=== PATIENT | male | born 1980 | race Caucasian/White ===

== ENCOUNTER 2023-11-21 20:20 | Emergency (ER) | payer OTHER ==
[2023-11-21 20:38] VITALS: TEMP 98
--- NOTE | 2023-11-21 20:59 | ED ---
Eye Problem HPI - General Chief complaint: Eye Problems Stated complaint: eye discomfort Time Seen by Provider: 11/21/23 20:38 Source: patient, RN notes reviewed Mode of arrival: ambulatory Limitations: no limitations - History of Present Illness Initial comments: 42-year-old male presents emergency department accompanied by his for chief complaint of left eye pain. Patient states that he was outside doing yard work when he was using a brush hog and thought that he may have gotten a foreign body in his left eye. Patient states that his eye was bothering him today as well so he used a medical grade eyewash station while at work and flush out his eye 2 times with full intervals being 15 minutes. Patient states that over the span of the day the pain is gotten progressively worse and has severe photophobia. endorses mild pain with extraocular eye movement. History of Lasix. Denies contact lens use. - Related Data Allergies Allergy/AdvReac Type Severity Reaction Status Date / Time acetaminophen [From Percocet] AdvReac Hallucinati Verified 11/21/23 20:38 ons oxycodone [From Percocet] AdvReac Hallucinati Verified 11/21/23 20:38 ons Review of Systems ROS Statement: Those systems with pertinent positive or pertinent negative responses have been documented in the HPI. ROS Other: All systems not noted in ROS Statement are negative. Past Medical History Past Medical History: No Reported History Past Surgical History: Joint Replacement Additional Past Surgical History / Comment(s): skin graft Past Psychological History: PTSD Smoking Status: Never smoker Past Alcohol Use History: Occasional Past Drug Use History: None Reported General Exam Limitations: no limitations General appearance: alert, in no apparent distress Head exam: Present: atraumatic, normocephalic, normal inspection Expanded Eyelids: Normal Inspection: Bilateral Pupils: Regular, Round: Bilateral, Reactive: Bilateral Sclera/Conjunctival: Normal Inspection: Right, Injection: Left, Exudate: Left Visual acuity (R) = 20/: 20 Visual acuity (L) = 20/: 20 With correction: No IOP (R) in mmH IOP (L) in mmH IOP measured with: Tonopen ENT exam: Present: normal exam, mucous membranes moist Neck exam: Present: normal inspection. Absent: tenderness, meningismus, lymp hadenopathy Respiratory exam: Present: normal lung sounds bilaterally. Absent: respiratory distress, wheezes, rales, rhonchi, stridor Cardiovascular Exam: Present: regular rate, normal rhythm, normal heart sounds. Absent: systolic murmur, diastolic murmur, rubs, gallop, clicks GI/Abdominal exam: Present: soft, normal bowel sounds. Absent: distended, tenderness, guarding, rebound, rigid Course Vital Signs 11/21/23 11/21/23 20:31 22:35 Temperature 98.0 F Pulse Rate 88 84 Respiratory 22 20 Rate Blood Pressure 159/102 112/74 O2 Sat by Pulse 98 99 Oximetry Medical Decision Making - Medical Decision Making Was pt. sent in by a medical professional or institution (, PA, DIRECTOR MEDICAL SURGICAL, urgent care, hospital, or long term...) When possible be specific @ -No Did you speak to anyone other than the patient for history (EMS, parent, family, police, friend...)? What history was obtained from this source @ -No Did you review nursing and triage notes (agree or disagree)? Why? @ -I reviewed and agree with nursing and triage notes Were old charts reviewed (outside hosp., previous admission, EMS record, old EKG, old radiological studies, urgent care reports/EKG's, long term records)? Report findings @ -No old charts were reviewed Differential Diagnosis (chest pain, altered mental status, abdominal pain women, abdominal pain men, vaginal bleeding, weakness, fever, dyspnea, syncope, headache, dizziness, GI bleed, back pain, seizure, CVA, palpatations, mental health, musculoskeletal)? @ -Ocular foreign body, corneal abrasion, conjunctivitis, globe rupture, this list is not all inclusive EKG interpreted by me (3pts min.). @ -None X-rays interpreted by me (1pt min.). @ -None done CT interpreted by me (1pt min.). @ -None done U/S interpreted by me (1pt. min.). @ -None done What testing was considered but not performed or refused? (CT, X-rays, U/S, labs)? Why? @ -None What meds were considered but not given or refused? Why? @ -None Did you discuss the management of the patient with other professionals (professionals i.e. , PA, DIRECTOR MEDICAL SURGICAL, lab, RT, psych nurse, health social work professor, forklift wheel loader, teacher, client sales and service officer, showcase trimmer)? Give summary @ -No Was smoking cessation discussed for >3mins.? @ -No Was critical care preformed (if so, how long)? @ -No Were there social determinants of health that impacted care today? How? (Homelessness, low income, unemployed, alcoholism, drug addiction, transpo rtation, low edu. Level, literacy, decrease access to med. care, correction, rehab)? @ -No Was there de-escalation of care discussed even if they declined (Discuss DNR or withdrawal of care, Hospice)? DNR status @ -No What co-morbidities impacted this encounter? (DM, HTN, Smoking, COPD, CAD, Cancer, CVA, ARF, Chemo, Hep., AIDS, mental health diagnosis, sleep apnea, morbid obesity)? @ -None Was patient admitted / discharged? Hospital course, mention meds given and route, prescriptions, significant lab abnormalities, going to OR and other pertinent info. @ -Discharged. 42-year-old male with left eye pain. On examination patient's left eye noted to have purulence and has conjunctival injection. Intraocular pressure within normal and visual acuity intact. Fluorescein dye was used to stain the eye proparacaine drops used to anesthetize with direct visualization under Barth lamp reveals a corneal abrasion. Patient is prescribed tobramycin drops that he started this afternoon from his primary care provider. Recommend that patient continue these drops as prescribed and schedule follow-up appoint with plating and point assembly supervisor for further evaluation of corneal abrasion. All questions answered at bedside and strict return prior discussed with the patient he is verbalized understanding. Case discussed with Dr. Salgado. Undiagnosed new problem with uncertain prognosis? @ -No Drug Therapy requiring intensive monitoring for toxicity (Heparin, Nitro, Insulin, Cardizem)? @ -No Were any procedures done? @ -No Diagnosis/symptom? @ -Corneal abrasion Acute, or Chronic, or Acute on Chronic? @ -aacute Uncomplicated (without systemic symptoms) or Complicated (systemic symptoms)? @ -uncomplicated Side effects of treatment? @ -No Exacerbation, Progression, or Severe Exacerbation? @ -No Poses a threat to life or bodily function? How? (Chest pain, [place], [place], pneumonia, PE, COPD, DKA, ARF, appy, cholecystitis, CVA, Diverticulitis, Homicidal, Suicidal, threat to staff... and all critical care pts) @ -No Disposition Clinical Impression: Corneal abrasion Disposition: HOME SELF-CARE Condition: Good Instructions (If sedation given, give patient instructions): Corneal Abrasion (ED) Additional Instructions: Return to the emergency department for any new or worsening symptoms. Recommend that you continue topical antibiotic drops as directed. Follow-up with plating and point assembly supervisor outpatient Is patient prescribed a controlled substance at d/c from ED?: No Referrals: Nonstaff,Physician [Primary Care Provider] - 1-2 days Time of Disposition: 22:06
[2023-11-21] MEDS: FLUORESCEIN STRIPS 1 MG STRIP RIGHT EYE ONE (21:24)
[2023-11-21] MEDS: PROPARACAINE 0.5% OPHTH DROPS 15 ML BTL RIGHT EYE STA (21:24)
[2023-11-21] MEDS: DIPH,PERTUS(ACELL)TETVAC-LF 0.5 ML VIAL IM ONE (22:25)
[2023-11-21] MEDS: KETOROLAC 15 MG/ML 1 ML VIAL IM STA (22:30)
[2023-11-21 22:42] VITALS: BP 112/74; PULSE 84; RESP 20
== END 2023-11-21 22:35 | disposition home or self-care (01) ==
LOC: EC 20:20
CPT/HCPCS: 90471; 90715; 96372; 99283